=== PATIENT | male | born 1995 | race Caucasian/White ===

== ENCOUNTER 2022-01-08 09:37 | Emergency (ER) | payer SELFPAY ==
[~2022-01-08] VITALS: Ht 167.6 cm; Wt 77.6 kg
[2022-01-08] MEDS ORDERED: CALC500T6 PO (09:56)
[2022-01-08] MEDS ORDERED: CHLORDIAZEPOXIDE 25MG CAPSULE PO ONE (10:30)
[2022-01-08] MEDS ORDERED: SODIUM CHLORIDE 0.9% 1,000 ML IV ONE (10:30)
[2022-01-08 10:37] LABS: EOSINOPHILS % 0.2 % (0.0-5.0); HEMATOCRIT. 43.2 % (42.0-52.0); LYMPHOCYTES % 18.8 % (20.0-50.0); MEAN CORPUSCULAR HEMOGLOBIN 31.1 pg (28.0-32.0); MEAN CORPUSCULAR VOLUME 89.4 fL (80.0-94.0); MEAN PLATELET VOLUME 10.4 fl (7.4-10.4); MONOCYTES % 9.4 % (2.0-8.0); NEUTROPHILS % 70.6 % (40.0-76.0); PLATELET 146 x1000/uL (130-400); RED BLOOD CELL COUNT 4.83 mill/uL (4.7-6.1); RED CELL DISTRIBUTION WIDTH 17.2 % (11.6-14.6)
[2022-01-08 10:52] LABS: CHLORIDE 87 mEq/L (98-107)
[2022-01-08 10:59] LABS: ETHANOL BLOOD 175 mg/dL
[2022-01-08] MEDS ORDERED: POTASSIUM CHLORIDE INJ 40 MEQ in DEXT 5% WATER 500 ML IV ONE (11:15)
[2022-01-08] MEDS ORDERED: ONDANSETRON HCL 4MG/2ML INJ IV ONE (11:15)
[2022-01-08] MEDS: POTASSIUM CHLORIDE 20MEQ TABLET SR PO ONE ×3 (11:27→11:48)
[2022-01-08] MEDS ORDERED: LORAZEPAM 0.5MG TABLET PO ONE (15:15)
[2022-01-08 17:30] VITALS: BP 130/81
== END 2022-01-08 17:52 | disposition home or self-care (01) ==
LOC: ER 09:37
DX: T51.0X1A Toxic effect of ethanol, accidental (unintentional), initial encounter (principal); Y92.89 Other specified places as the place of occurrence of the external cause; E87.6 Hypokalemia; K76.9 Liver disease, unspecified; K21.9 Gastro-esophageal reflux disease without esophagitis; Z87.891 Personal history of nicotine dependence
CPT/HCPCS: 36415; 80053; 80307; 80320; 80329; 82962; 85025; 93005; 96361; 96365; 96366; 96375; 99285; J2405; J3480; J7030; J7060; G0480